=== PATIENT | male | born 1940 | race Caucasian/White ===

== ENCOUNTER 2024-03-26 08:00 | Inpatient (IN) | payer MEDICARE ==
[2024-03-24 14:54] LABS: BASOPHILS % 0.2 % (0.0-1.0); EOSINOPHILS % 0.7 % (0.0-6.0); HEMATOCRIT 38.3 % (38.2-49.6); HEMOGLOBIN 11.9 g/dL (14.0-18.0); LYMPHOCYTES # (AUTO) 1.2 (1.0-3.2); LYMPHOCYTES % 21.8 % (18.0-39.1); MEAN CORPUSCULAR HEMOGLOBIN 31.9 pg (28-32); MEAN CORPUSCULAR HGB CONC 31.1 g/dL (31-35); MEAN CORPUSCULAR VOLUME 102.7 fL (81-99); MONOCYTES # (AUTO) 0.6 (0.2-0.8); MONOCYTES % 11.4 % (4.4-11.3); NEUTROPHILS # (AUTO) 3.6 (2.1-6.9); NEUTROPHILS % 65.5 % (38.7-80.0); PLATELET COUNT 154 x10e3/uL (140-360); RED BLOOD COUNT 3.73 x10e6/uL (4.3-5.7); RED CELL DISTRIBUTION WIDTH 13.8 % (11.7-14.4); WHITE BLOOD COUNT 5.55 x10e3/uL (4.8-10.8)
[2024-03-24 15:23] LABS: ANION GAP 12.9 mmol/L (8-16); CALCIUM 9.7 mg/dL (8.4-10.2); CREATININE, SERUM 1.2 mg/dL (0.72-1.25); POTASSIUM 4.9 mmol/L (3.5-5.1)
[~2024-03-26] VITALS: Ht 175.3 cm; Wt 79.8 kg
[2024-03-26] VITALS (7 sets, daily range): BP systolic 91–103; BP diastolic 58–60; PULSE 74–91; RESP 18–20; TEMP 97.8–98; O2SAT 93–95
[~2024-03-26 08:00] MED LIST: ATORVASTATIN CA20 MG PO; FINASTERIDE5 MG PO; FLOMAX0.4 MG PO; METOPROLOL SUCC50 MG PO; PRILOSEC10 M1 PO; TRIAMTERENE-HCTZ1 EA PO; ULTRAM 50MG50 MG PO; VASOTEC10 M1 PO; ZYRTEC10 M3 PO
[2024-03-26] MEDS: SODIUM CHLORIDE 0.9% 1000ML 1,000 ML ONE (08:09)
[2024-03-26] MEDS: CEFTRIAXONE 1 GM VIAL ONE (08:09)
[2024-03-26] MEDS: GENTAMICIN 80MG/NS 100 ML 200 ML IV ONE (08:09)
[2024-03-26] MEDS ORDERED: IOPAMIDOL 610MG/1ML 300 MG/ML VIAL IV ONE (10:49)
[2024-03-26] MEDS ORDERED: FENTANYL CITRATE/PF 100MCG/2 ML INJ ONE (11:18)
[2024-03-26] MEDS ORDERED: PROPOFOL IV EMULSION 10 MG/ML 50 ML VIAL IV ONE (11:27)
[2024-03-26] MEDS ORDERED: PHENYLEPHRINE HCL 1% 10 MG/ML VIAL ONE (11:27)
[2024-03-26] MEDS ORDERED: DIPHENHYDRAMINE HCL 25 MG CAP PO PRN (12:15)
[2024-03-26 12:50] LABS: BASOPHILS % 0.2 % (0.0-1.0); EOSINOPHILS % 0.3 % (0.0-6.0); HEMATOCRIT 32.1 % (38.2-49.6); HEMOGLOBIN 10.2 g/dL (14.0-18.0); LYMPHOCYTES # (AUTO) 1.8 (1.0-3.2); LYMPHOCYTES % 28.6 % (18.0-39.1); MEAN CORPUSCULAR HGB CONC 31.8 g/dL (31-35); MEAN CORPUSCULAR VOLUME 103.9 fL (81-99); MONOCYTES # (AUTO) 0.8 (0.2-0.8); NEUTROPHILS # (AUTO) 3.7 (2.1-6.9); NEUTROPHILS % 57.6 % (38.7-80.0); PLATELET COUNT 111 x10e3/uL (140-360); RED BLOOD COUNT 3.09 x10e6/uL (4.3-5.7); RED CELL DISTRIBUTION WIDTH 13.7 % (11.7-14.4); WHITE BLOOD COUNT 6.39 x10e3/uL (4.8-10.8)
[2024-03-26 13:02] LABS: ANION GAP 10.5 mmol/L (8-16); CALCIUM 8.4 mg/dL (8.4-10.2); CREATININE, SERUM 1.03 mg/dL (0.72-1.25); POTASSIUM 4.5 mmol/L (3.5-5.1)
[2024-03-26] MEDS: SODIUM CHLORIDE 0.9% 1000ML 1,000 ML IV SCH (13:56)
[2024-03-26] MEDS: ONDANSETRON HCL INJ 2MG/ML 2ML 2 MG/ML VIAL IV PRN (13:56)
[2024-03-26] MEDS: PHENAZOPYRIDINE HCL 100 MG TAB PO PRN (13:56)
[2024-03-26] MEDS: ACETAMINOPHEN/CODEINE 300MG - 30MG TAB PO PRN (13:56)
[2024-03-26] MEDS: SENNA-S TABLET PO SCH (17:04)
[2024-03-26] MEDS: ACETAMINOPHEN 1000 MG/100 ML IV PRN (17:04)
[2024-03-27] VITALS (11 sets, daily range): BP systolic 96–128; BP diastolic 55–76; PULSE 86–110; RESP 17–20; TEMP 98–99.6; O2SAT 92–95
[2024-03-27 05:55] LABS: BASOPHILS % 0.2 % (0.0-1.0); EOSINOPHILS # (AUTO) 0.1 (0.0-0.4); HEMATOCRIT 27.4 % (38.2-49.6); HEMOGLOBIN 8.6 g/dL (14.0-18.0); LYMPHOCYTES # (AUTO) 0.7 (1.0-3.2); LYMPHOCYTES % 14.6 % (18.0-39.1); MEAN CORPUSCULAR HEMOGLOBIN 32.5 pg (28-32); MEAN CORPUSCULAR HGB CONC 31.4 g/dL (31-35); MEAN CORPUSCULAR VOLUME 103.4 fL (81-99); MONOCYTES # (AUTO) 0.6 (0.2-0.8); MONOCYTES % 12.9 % (4.4-11.3); NEUTROPHILS # (AUTO) 3.5 (2.1-6.9); NEUTROPHILS % 71.1 % (38.7-80.0); PLATELET COUNT 106 x10e3/uL (140-360); RED BLOOD COUNT 2.65 x10e6/uL (4.3-5.7); RED CELL DISTRIBUTION WIDTH 13.7 % (11.7-14.4); WHITE BLOOD COUNT 4.87 x10e3/uL (4.8-10.8)
[2024-03-27 06:20] LABS: ANION GAP 9.5 mmol/L (8-16); CALCIUM 7.9 mg/dL (8.4-10.2); CREATININE, SERUM 0.87 mg/dL (0.72-1.25); POTASSIUM 4.5 mmol/L (3.5-5.1)
[2024-03-28] VITALS (7 sets, daily range): BP systolic 109–132; BP diastolic 64–77; PULSE 86–101; RESP 18–20; TEMP 98.5–98.8; O2SAT 94–96
[2024-03-28 05:48] LABS: BASOPHILS % 0.4 % (0.0-1.0); EOSINOPHILS # (AUTO) 0.2 (0.0-0.4); EOSINOPHILS % 3.2 % (0.0-6.0); HEMATOCRIT 25.5 % (38.2-49.6); HEMOGLOBIN 8.2 g/dL (14.0-18.0); LYMPHOCYTES # (AUTO) 0.8 (1.0-3.2); LYMPHOCYTES % 15.9 % (18.0-39.1); MEAN CORPUSCULAR HEMOGLOBIN 32.8 pg (28-32); MEAN CORPUSCULAR HGB CONC 32.2 g/dL (31-35); MONOCYTES # (AUTO) 0.8 (0.2-0.8); MONOCYTES % 15.3 % (4.4-11.3); NEUTROPHILS # (AUTO) 3.2 (2.1-6.9); NEUTROPHILS % 64.8 % (38.7-80.0); PLATELET COUNT 117 x10e3/uL (140-360); RED CELL DISTRIBUTION WIDTH 13.2 % (11.7-14.4); WHITE BLOOD COUNT 4.98 x10e3/uL (4.8-10.8)
[2024-03-28 06:03] LABS: ANION GAP 8.8 mmol/L (8-16); CALCIUM 8.1 mg/dL (8.4-10.2); CREATININE, SERUM 0.79 mg/dL (0.72-1.25); POTASSIUM 3.8 mmol/L (3.5-5.1)
[2024-03-28] MEDS ORDERED: TAMSULOSIN HCL 0.4 MG CAP PO SCH (06:45)
[2024-03-28] MEDS ORDERED: METOPROLOL SUCCINATE 25 MG TAB XL PO ONE (06:45)
[2024-03-28] MEDS: ENALAPRIL MALEATE 10 MG TAB PO SCH (08:49)
[2024-03-28] MEDS: FINASTERIDE 5 MG TAB PO SCH (08:49)
[2024-03-28] MEDS: LORATADINE 10 MG TAB PO SCH (08:52)
[2024-03-28] MEDS: NITROFURANTOIN MACROCRYSTALS 100 MG CAP PO SCH (10:34)
[2024-03-28] MEDS ORDERED: TRAMADOL HCL 50 MG TAB PO PRN (12:00)
[2024-03-28] MEDS ORDERED: ATORVASTATIN 20 MG TAB PO SCH (21:00)
[2024-03-28] MEDS ORDERED: METOPROLOL SUCCINATE 50 MG TAB XL PO SCH (21:00)
== END 2024-03-28 18:02 | disposition home or self-care (01) | DRG 713 ==
LOC: OR 08:00 → PACU V 12:58 → MED/SURG2 13:29
PROVIDERS: ADMIT Internal Medicine; ATTEND Internal Medicine
PROC: 0TCB8ZZ Extirpation of Matter from Bladder, Via Natural or Artificial Opening Endoscopic (ICD-10-PCS; 2024-03-26)
PROC: BT101ZZ Fluoroscopy of Bladder using Low Osmolar Contrast (ICD-10-PCS; 2024-03-26)
PROC: BT161ZZ Fluoroscopy of Right Ureter using Low Osmolar Contrast (ICD-10-PCS; 2024-03-26)
PROC: BT171ZZ Fluoroscopy of Left Ureter using Low Osmolar Contrast (ICD-10-PCS; 2024-03-26)
PROC: 0T9B70Z Drainage of Bladder with Drainage Device, Via Natural or Artificial Opening (ICD-10-PCS; 2024-03-26)
PROC: 0VB08ZZ Excision of Prostate, Via Natural or Artificial Opening Endoscopic (ICD-10-PCS; principal; 2024-03-26 10:49)
DX: N40.1 Benign prostatic hyperplasia with lower urinary tract symptoms (principal); D62 Acute posthemorrhagic anemia; N13.8 Other obstructive and reflux uropathy; N32.81 Overactive bladder; N21.0 Calculus in bladder; R33.8 Other retention of urine; R31.0 Gross hematuria; G14 Postpolio syndrome; R53.1 Weakness; R13.19 Other dysphagia; M19.90 Unspecified osteoarthritis, unspecified site; J30.9 Allergic rhinitis, unspecified; Z90.49 Acquired absence of other specified parts of digestive tract
CPT/HCPCS: 36415; 71046; 74420; 80048; 83735; 85025; 87086; 87186; 88305; 93005; 93970; 94640; 94799; 99252; J0696; J1580; J2371; J2405; J7030